=== PATIENT | male | born 1945 | race Hispanic/Latino ===

== ENCOUNTER 2018-11-21 16:26 | Emergency (ER) | payer MEDICARE, MEDICAID ==
[~2018-11-21] VITALS: Ht 167.6 cm; Wt 81.0 kg
[2018-11-21] MEDS ORDERED: ENALAPRIL10 MG PO (16:53)
[2018-11-21 17:36] LABS: URINE BILIRUBIN - DIPSTICK NEGATIVE (NEGATIVE); URINE BLOOD DIPSTICK NEGATIVE (NEGATIVE); URINE COLOR YELLOW; URINE GLUCOSE - DIPSTICK NEGATIVE (NEGATIVE); URINE KETONE NEGATIVE (NEGATIVE); URINE LEUK ESTERASE NEGATIVE (Negative); URINE NITRITE - DIPSTICK NEGATIVE (Negative); URINE PROTEIN - DIPSTICK NEGATIVE (NEG-TRACE); URINE SPECIFIC GRAVITY <=1.005; URINE UROBILINOGEN - DIPSTICK 0.2 E.U./dL (0.2)
[2018-11-21 17:39] LABS: URINE CLARITY CLEAR
[2018-11-21] MEDS ORDERED: ZITHROMAX500 MG PO (18:25)
[2018-11-21] MEDS ORDERED: TESSALON PER100 MG PO (18:27)
[2018-11-21 18:30] VITALS: BP 135/88
== END 2018-11-21 18:30 | disposition home or self-care (01) ==
LOC: ED 16:26
DX: J02.0 Streptococcal pharyngitis (principal); R05 Cough; R50.9 Fever, unspecified